=== PATIENT | male | born 1975 | race Caucasian/White ===

== ENCOUNTER 2017-10-08 15:27 | Emergency (ER) | payer OTHER ==
[2017-10-08 16:00] VITALS: BP 131/90; PULSE 111; TEMP 98.3; BMI 38.5
[2017-10-08 17:36] LABS: BASO % 0.4 % (0-2.0); EOS % 0.4 % (0-4.5); MCH 25.9 pg (25.7-33.7); MCHC 32.3 g/dl (32.0-35.9); MEAN CELL VOLUME 80.2 fl (80-96); MEAN PLT VOLUME 8.6 fl (7.5-11.1); NEUT % 85.4 % (42.8-82.8); PLATELET COUNT 269 K/MM3 (134-434); RDW 15.2 % (11.9-15.9); WHITE BLOOD COUNT 16.3 K/mm3 (4.0-10.0)
[2017-10-08 17:50] LABS: INR 1.19 (0.82-1.09); PROTHROMBIN TIME (PATIENT) 13.4 SEC (9.98-11.88)
[2017-10-08 17:53] LABS: ACTIVATED PTT 29.6 SECONDS (26.9-34.4)
[2017-10-08 18:00] LABS: ALBUMIN 3.4 g/dl (3.4-5.0); ALK PHOS 92 U/L (45-117); ANION GAP 6 (8-16); BILIRUBIN,TOTAL 0.2 mg/dL (0.2-1.0); CALCIUM 8.8 mg/dL (8.5-10.1); CO2 26 mmol/L (21-32); CREATININE 2.2 mg/dL (0.7-1.3); GLUCOSE,RANDOM 137 mg/dL (74-106); SGOT/AST 16 U/L (15-37); SGPT/ALT 20 U/L (12-78); TOT PROT 7.5 g/dl (6.4-8.2)
[2017-10-08 18:04] LABS: TROPONIN I 0.04 ng/ml (0.00-0.05)
[2017-10-08] MEDS ORDERED: ACETAMINOPHEN 1000 MG/100 ML VIAL (NON FORMULARY) IVPB ONE (18:48)
[2017-10-08] MEDS ORDERED: oxyCODONE HCL 5 MG TABLET PO ONE (18:54)
--- NOTE | 2017-10-08 19:00 | PDOC ---
History of Present Illness - General Chief Complaint: Respiratory Stated Complaint: PAIN/rib pain s/p coughing Time Seen by Provider: 10/08/17 16:49 - History of Present Illness Initial Comments: 10/08/17 18:55 "The patient is a 42 year old male, with a significant past medical history of kidney transplant s/p FSGS, 3 prior DVTs (taking Xarelto), hypertension, and hyperlipidemia, who presents to the emergency department with left sided rib pain. He reports having an URI early September and has had a persistent cough since then. He reportedly saw his PCP at [facility] about 2 weeks ago where he was given a 10 day course of medications for his cough. He does not recall what medication it was. He states his cough was improving, but today he had a sudden coughing fit. He states that during this fit, he felt a pop in his left chest, followed by severe pain. He denies SOB. Denies diaphoresis. He denies hemoptysis, headache and dizziness. He denies fever, chills, nausea, vomit, diarrhea and constipation. He denies dysuria, frequency, urgency and hematuria. Social Hx: current smoker, on and off cessation. " Past History - Past Medical History Allergies/Adverse Reactions: Allergies Allergy/AdvReac Type Severity Reaction Status Date / Time Penicillins Allergy Verified 10/08/17 15:53 Home Medications: Ambulatory Orders Diltiazem Cd [Cardizem Cd -] 300 mg PO DAILY 10/08/17 Fenofibrate Nanocrystallized [Tricor] 0 mg PO DAILY 10/08/17 Metoprolol Succinate [Toprol Xl -] 25 mg PO BID 10/08/17 Prednisone 5 mg PO Q48H 10/08/17 Prednisone [Deltasone -] 2.5 mg PO Q48H 10/08/17 Rivaroxaban [Xarelto -] 15 mg PO DAILY 10/08/17 Simvastatin [Zocor -] 40 mg PO DAILY 10/08/17 Tacrolimus Anhydrous [Prograf] 1 mg PO BID 10/08/17 Valsartan 0 mg PO DAILY 10/08/17 COPD: No Disorders: Yes (kidney transplant 2000) Other medical history: multiple dvts on xeralta no green filter - Suicide/Smoking/Psychosocial Hx Smoking History: Never smoked Have you smoked in the past 12 months: No Information on smoking cessation initiated: No Hx Alcohol Use: No Drug/Substance Use Hx: No Substance Use Type: None Review of Systems - Review of Systems Comments:: 10/08/17 19:02 "GENERAL/CONSTITUTIONAL: No fever or chills. No weakness. HEAD, EYES, EARS, NOSE AND THROAT: No change in vision. No ear pain or discharge. No sore throat. CARDIOVASCULAR: + Chest pain RESPIRATORY: No cough, wheezing, or hemoptysis. GASTROINTESTINAL: No nausea, vomiting, diarrhea or constipation. GENITOURINARY: No dysuria, frequency, or change in urination. MUSCULOSKELETAL: No joint or muscle swelling or pain. No neck or back pain. SKIN: No rash NEUROLOGIC: No headache, vertigo, loss of consciousness, or change in strength/ sensation. ENDOCRINE: No increased thirst. No abnormal weight change. HEMATOLOGIC/LYMPHATIC: No anemia, easy bleeding, or history of blood clots. ALLERGIC/IMMUNOLOGIC: No hives or skin allergy. " *Physical Exam - Vital Signs Last Vital Signs Temp Pulse Resp BP Pulse Ox 98.3 F 111 H 18 131/90 99 10/08/17 15:30 10/08/17 15:30 10/08/17 15:30 10/08/17 15:30 10/08/17 15:30 - Physical Exam Comments: 10/08/17 19:03 "GENERAL: Awake, alert, and fully oriented, in no acute distress HEAD: No signs of trauma EYES: PERRLA, EOMI, sclera anicteric, conjunctiva clear ENT: Auricles normal inspection, hearing grossly normal, nares patent, oropharynx clear without exudates. Moist mucosa NECK: Nontender, no stepoffs, Normal ROM, supple, no lymphadenopathy, JVD, or masses LUNGS: Breath sounds equal, clear to auscultation bilaterally. No wheezes, and no crackles CHEST: L chest wall tenderness, no crepitus HEART: Regular rate and rhythm, normal S1 and S2, no murmurs, rubs or gallops ABDOMEN: Soft, nontender, normoactive bowel sounds. No guarding, no rebound. No masses EXTREMITIES: Normal range of motion, no edema. No clubbing or cyanosis. No cords, erythema, or tenderness NEUROLOGICAL: Cranial nerves II through XII intact. 5/5 strength and sensation in all extremities, Normal speech, normal gait SKIN: Warm, Dry, normal turgor, no rashes or lesions noted. " Heart Score/ECG Review - ECG Impressions Comment:: 10/08/17 19:03 NSR, rate 107, no BRAYAN/STDs, T wave flattening in lateral leads, no prior to compare, intervals and axis wnl ED Treatment Course - LABORATORY CBC & Chemistry Diagram: 10/08/17 17:21 10/08/17 17:21 - ADDITIONAL ORDERS Additional order review: Laboratory Results 10/08/17 10/08/17 12 17:21 17:21 17:21 PT with INR 13.40 H INR 1.19 H PTT (Actin FS) 29.6 D-Dimer Sodium 140 Potassium 4.5 Chloride 108 H Carbon Dioxide 26 Anion Gap 6 L BUN 31 H Creatinine 2.2 H Creat Clearance w eGFR 32.83 Random Glucose 137 H Calcium 8.8 Total Bilirubin 0.2 AST 16 ALT 20 Alkaline Phosphatase 92 Creatine Kinase 255 Creatine Kinase Index 0.5 CK-MB (CK-2) 1.428 Troponin I 0.04 B-Natriuretic Peptide 138.62 H Total Protein 7.5 Albumin 3.4 10/08/17 17:21 PT with INR INR PTT (Actin FS) D-Dimer < 200 Sodium Potassium Chloride Carbon Dioxide Anion Gap BUN Creatinine Creat Clearance w eGFR Random Glucose Calcium Total Bilirubin AST ALT Alkaline Phosphatase Creatine Kinase Creatine Kinase Index CK-MB (CK-2) Troponin I B-Natriuretic Peptide Total Protein Albumin 10/08/17 17:21 RBC 4.96 MCV 80.2 MCHC 32.3 RDW 15.2 MPV 8.6 Neutrophils % 85.4 H Lymphocytes % 6.1 L Monocytes % 7.7 Eosinophils % 0.4 Basophils % 0.4 - RADIOLOGY Radiology Studies Ordered: Category Date Time Status CHEST PA & LAT [RAD] Stat Radiology 10/08/17 17:03 Completed RIBS-LEFT SIDE [RAD] Stat Radiology 10/08/17 17:03 Completed DUPLEX VASCUL US-2LEGS [US] Stat Ultrasound 10/08/17 17:01 Completed Medical Decision Making - Medical Decision Making 10/08/17 19:04 42 M with L chest wall pain after coughing. Pt with tenderness of L ribcage, concerning for rib fx. Also consider pneumothorax. Pt has h/o DVT and is tachycardic, so PE must be ruled out as well. ACS unlikely as EKG is nonischemic and pt has no cardiac risk factors. - Labs, ddimer, trop - CXR, rib XR - Pain control 10/08/17 19:17 CXR shows possible L 10th rib fx. Pt now with tolerable pain s/p oxycodone and IV tylenol. *DC/Admit/Observation/Transfer Diagnosis at time of Disposition: Rib fracture - Discharge Dispostion Disposition: HOME - Referrals Referrals: Robby Lee [Primary Care Provider] - - Patient Instructions Printed Discharge Instructions: DI for Rib Fracture Additional Instructions: Take one percocet every 8 hours as needed for pain. If you experience worsening pain, shortness of breath, fevers, or any other concerning symptoms, return tto the ER immediately. Otherwise follow up with your primary doctor within 1 week. - Post Discharge Activity Forms/Work/School Notes: Back to Work - Attestations Physician Attestion: 10/08/17 19:39 I, Dr. Renato Fischer MD, attest that this document has been prepared under my direction and personally reviewed by me in its entirety. I further attest, that it accurately reflects all work, treatment, procedures and medical decision -making performed by me.
[2017-10-08] MEDS ORDERED: SODIUM CHLORIDE 1,000 ML IV STA (19:03)
[2017-10-08] MEDS ORDERED: ACETAMINOPHEN INJECTION 100 ML IVPB ONE (19:06)
[2017-10-08] MEDS ORDERED: oxyCODONE HCL 5 MG TABLET ONE (19:16)
--- NOTE | 2017-10-13 15:11 | EKG ---
Test Reason : Blood Pressure : / mmHG Vent. Rate : 107 BPM Atrial Rate : 107 BPM P-R Int : 172 ms QRS Dur : 092 ms QT Int : 342 ms P-R-T Axes : 034 -12 066 degrees QTc Int : 456 ms SINUS TACHYCARDIA MINIMAL VOLTAGE CRITERIA FOR LVH, MAY BE NORMAL VARIANT NONSPECIFIC T WAVE ABNORMALITY ABNORMAL ECG NO PREVIOUS ECGS AVAILABLE Confirmed by JUAN HARMON MD ([id number]) on 10/13/2017 3:11:12 PM Referred By: Confirmed By:JUAN HARMON MD
== END 2017-10-08 21:11 | disposition home or self-care (01) ==
LOC: JER 15:27
DX: S22.32XA Fracture of one rib, left side, initial encounter for closed fracture (principal); X58.XXXA Exposure to other specified factors, initial encounter; Y93.89 Activity, other specified; Y92.9 Unspecified place or not applicable; I10 Essential (primary) hypertension; E78.5 Hyperlipidemia, unspecified
CPT/HCPCS: 36415; 71020-TC; 71101-TC; 80053; 82550; 82553; 83880; 84484; 85025; 85379; 85610; 85730; 93005; 93010; 93970-TC; 99282-25